=== PATIENT | female | born 1965 | race Caucasian/White ===

== ENCOUNTER 2017-08-12 10:25 | Day surgery (SDC) | payer OTHER ==
[~2017-08-12] VITALS: Ht 170.2 cm; Wt 70.8 kg
[~2017-08-12 10:25] MED LIST: GABAPENTIN300 MG PO; NAPROSYN500 MG PO
== END 2017-08-12 11:35 | disposition home or self-care (01) ==
LOC: PAIN 10:25 → SDC 11:00 → PAIN 11:35
DX: M47.816 Spondylosis without myelopathy or radiculopathy, lumbar region (principal); M51.26 Other intervertebral disc displacement, lumbar region; M79.1 Myalgia; F41.8 Other specified anxiety disorders; K21.9 Gastro-esophageal reflux disease without esophagitis; F17.200 Nicotine dependence, unspecified, uncomplicated; Z79.891 Long term (current) use of opiate analgesic
CPT/HCPCS: J1100; J2250; J3010

== ENCOUNTER 2017-09-09 10:18 | Day surgery (SDC) | payer OTHER ==
[~2017-09-09] VITALS: Ht 170.2 cm; Wt 77.1 kg
[~2017-09-09 10:18] MED LIST changes: +NEURONTIN600 MG PO; +PROZAC40 MG PO; +SEROQUEL50 MG PO
== END 2017-09-09 12:29 | disposition home or self-care (01) ==
LOC: PAIN 10:18 → SDC 10:45 → PAIN 12:29
DX: M47.816 Spondylosis without myelopathy or radiculopathy, lumbar region (principal); M54.16 Radiculopathy, lumbar region; M51.26 Other intervertebral disc displacement, lumbar region; M79.1 Myalgia; F41.8 Other specified anxiety disorders; Z79.891 Long term (current) use of opiate analgesic; F17.200 Nicotine dependence, unspecified, uncomplicated
CPT/HCPCS: J1100; J2250